=== PATIENT | female | born 1995 | race Caucasian/White ===

== ENCOUNTER 2023-05-06 09:25 | Observation (INO) ==
[2023-05-06] MEDS: METOCLOPRAMIDE 10 MG/2 ML VIAL IV ONE (09:41)
[2023-05-06] MEDS: LACTATED RINGERS 1,000 ML IV ONE ×2 (09:41→11:00)
[2023-05-06] MEDS: diphenhydrAMINE 50 MG/ML VIAL IV ONE (10:03)
[2023-05-06 10:04] LABS: Basophils # (Auto) 0.02 K/mcL (0.00-0.30); Basophils % (Auto) 0.2 % (0.0-2.0); Eosinophils # (Auto) 0 K/mcL (0.00-0.70); Eosinophils % (Auto) 0 % (0.0-7.0); Hematocrit 43.2 % (34.1-44.9); Hemoglobin 14.9 g/dL (11.2-15.7); Lymphocytes # (Auto) 0.98 K/mcL (1.50-4.80); Lymphocytes % (Auto) 7.7 % (15.5-49.0); Mean Cell Volume 88.2 fL (80.0-100.0); Mean Corpuscular HGB Conc 34.5 g/dL (31.0-36.0); Mean Platelet Volume 10.7 fL (8.8-12.5); Monocytes # (Auto) 0.28 K/mcL (0.10-0.90); Monocytes % (Auto) 2.2 % (1.0-12.0); Neutrophils % (Auto) 89.7 % (38.0-78.0); Platelet Count 341 K/mcL (140-440); Red Cell Distribution Width 12.9 % (11.5-14.5); WBC 12.7 K/mcL (4.5-11.0)
[2023-05-06 10:17] LABS: ALT/SGPT 14 U/L (<40); AST/SGOT 20 U/L (<32); Albumin 4.8 gm/dL (3.2-5.2); Albumin/Globulin Ratio 1.8 (1.0-2.3); Alkaline Phosphatase 131 U/L (39-117); Bilirubin,Total 0.4 mg/dL (0.1-1.0); Blood Urea Nitrogen 9 mg/dL (6-20); Calcium 9.5 mg/dL (8.6-10.4); Carbon Dioxide 20 mmol/L (22-30); Chloride 98 mmol/L (96-108); Globulin 2.7 gm/dL (2.2-3.7); Glomerular Filtration Rate 131; Glucose 165 mg/dL (70-105); Phosphorous 1.9 mg/dL (2.5-4.5)
[2023-05-06] MEDS: KETOROLAC 30 MG/ML VIAL IV ONE (11:00)
[2023-05-06] MEDS: LORazepam 2 MG/ML VIAL IV ONE (12:09)
[2023-05-06] MEDS: KETAMINE 10 MG/ML ML IV ONE (12:12)
[2023-05-06] MEDS: HYDROmorphone 0.5 MG/0.5 ML SYRINGE IV ONE (13:17)
[2023-05-06] MEDS: HALOPERIDOL LACTATE 5 MG/ML VIAL IV ONE (13:25)
[2023-05-06 14:49] LABS: Beta Hydroxybutyrate 1.9 mmol/L (<0.27)
[2023-05-06 15:02] LABS: Hemoglobin A1C 5.2 % Hgb (4.0-6.0)
[2023-05-06] MEDS ORDERED: LORazepam 2 MG/ML VIAL IV PRN (17:02)
[2023-05-06] MEDS ORDERED: POLYETHYLENE GLYCOL 3350 17 GM PACKET PO PRN (17:02)
[2023-05-06] MEDS ORDERED: MAGNESIUM SULFATE 2 GM/50 ML BAG IV PRN (17:02)
[2023-05-06] MEDS ORDERED: POTASSIUM CHLORIDE 40 MEQ in DEXTROSE 5% IN WATER 500 ML IV PRN (17:02)
[2023-05-06] MEDS ORDERED: METOCLOPRAMIDE 10 MG/2 ML VIAL IV SCH (17:02)
[2023-05-06] MEDS ORDERED: POTASSIUM CHLORIDE 20 MEQ TABLET PO PRN ×2 (17:02)
[2023-05-06] MEDS: HALOPERIDOL LACTATE 5 MG/ML VIAL IV PRN (17:18)
[2023-05-06] MEDS: POTASSIUM PHOSPHATE 40 MEQ in DEXTROSE 5% IN WATER 500 ML IV ONE (17:41)
[2023-05-06] MEDS: DEXTROSE 5%-1/2NS 1,000 ML IV SCH (17:41)
[2023-05-06] MEDS: PROMETHAZINE 25 MG/ML VIAL IV PRN (18:53)
[2023-05-06] MEDS: hydrOXYzine 25 MG TABLET PO PRN (18:53)
[2023-05-06] MEDS: METOPROLOL TARTRATE 25 MG TABLET PO SCH (20:12)
[2023-05-06] MEDS: NORTRIPTYLINE 25 MG CAPSULE PO SCH (20:12)
[2023-05-06] MEDS: DILTIAZEM 120 MG CAP.XL.24H PO SCH (20:12)
[2023-05-06] MEDS: HYDROcodone/APAP 5/325MG TABLET PO PRN (20:14)
[2023-05-06] MEDS: ONDANSETRON 4 MG/2 ML VIAL IV PRN (20:15)
[2023-05-06] MEDS: BUDESONIDE 0.5 MG/2 ML AMPUL.NEB NEB SCH (22:00)
[2023-05-06] MEDS: 0.9 % SODIUM CHLORIDE 10 ML SYRINGE IV SCH (22:21)
[2023-05-07 07:30] LABS: ALT/SGPT 9 U/L (<40); AST/SGOT 17 U/L (<32); Albumin 4.2 gm/dL (3.2-5.2); Albumin/Globulin Ratio 1.6 (1.0-2.3); Alkaline Phosphatase 110 U/L (39-117); Bilirubin,Direct < 0.2 mg/dL (0-0.3); Bilirubin,Total 0.4 mg/dL (0.1-1.0); Blood Urea Nitrogen 4 mg/dL (6-20); Calcium 9.1 mg/dL (8.6-10.4); Carbon Dioxide 24 mmol/L (22-30); Chloride 103 mmol/L (96-108); Globulin 2.6 gm/dL (2.2-3.7); Glomerular Filtration Rate 141; Glucose 125 mg/dL (70-105); Lactate Dehydrogenase 261 U/L (135-225); Phosphorous 2.6 mg/dL (2.5-4.5); Triglycerides 65 mg/dL (<150); Uric Acid 5.3 mg/dL (2.5-8.0)
[2023-05-07] MEDS: ZAFIRLUKAST 20 MG TABLET PO SCH (08:27)
[2023-05-07] MEDS: FEXOFENADINE 180 MG TABLET PO SCH (08:27)
[2023-05-07] MEDS: CITALOPRAM 20 MG TABLET PO SCH (08:27)
[2023-05-07] MEDS: ENOXAPARIN 40 MG/0.4 ML SYRINGE SQ SCH (08:28)
[2023-05-07] MEDS: buPROPion 150 MG TAB.XL.24H PO SCH (08:28)
[2023-05-07] MEDS: Fluticasone-Umeclidin-Vilanter [Trelegy Ellipta] 200-62.5-25 MCG Inhaler INH SCH (08:28)
[2023-05-07] MEDS: IPRATROPIUM/ALBUTEROL 3 ML AMPUL.NEB NEB PRN (09:08)
[2023-05-07] MEDS: DEXTROSE 5%-1/2NS 1,000 ML IV SCH (11:16)
[2023-05-07] MEDS: METOCLOPRAMIDE 10 MG/2 ML VIAL IV SCH (11:45)
[2023-05-07] MEDS: POTASSIUM CHLORIDE 20 MEQ in DEXTROSE 5% IN WATER 250 ML IV ONE (11:45)
[2023-05-07] MEDS: MIRTAZAPINE 15 MG TABLET PO SCH (21:21)
[2023-05-08 06:44] LABS: ALT/SGPT 8 U/L (<40); AST/SGOT 15 U/L (<32); Albumin 3.8 gm/dL (3.2-5.2); Albumin/Globulin Ratio 1.7 (1.0-2.3); Alkaline Phosphatase 93 U/L (39-117); Bilirubin,Direct < 0.2 mg/dL (0-0.3); Bilirubin,Total 0.4 mg/dL (0.1-1.0); Blood Urea Nitrogen 5 mg/dL (6-20); Calcium 8.6 mg/dL (8.6-10.4); Carbon Dioxide 23 mmol/L (22-30); Chloride 105 mmol/L (96-108); Globulin 2.2 gm/dL (2.2-3.7); Glomerular Filtration Rate 123; Glucose 120 mg/dL (70-105); Lactate Dehydrogenase 222 U/L (135-225); Phosphorous 2.5 mg/dL (2.5-4.5); Triglycerides 89 mg/dL (<150); Uric Acid 5.4 mg/dL (2.5-8.0)
[2023-05-08] MEDS: POTASSIUM CHLORIDE 40 MEQ in DEXTROSE 5% IN WATER 500 ML IV ONE (10:07)
== END 2023-05-08 14:40 | disposition home or self-care (01) ==
LOC: ED 09:25 → MEDSUR 16:47 → INTOOBSV 16:47
PROVIDERS: ADMIT Internal Medicine; ATTEND Internal Medicine